=== PATIENT | male | born 1965 ===

== ENCOUNTER 2018-05-16 09:12 | Emergency (ER) | payer OTHER ==
[~2018-05-16] VITALS: Ht 180.3 cm; Wt 137.0 kg
[~2018-05-16 09:12] MED LIST: CIPRO500 MG PO; FLAGYL500MG PO; NABUMETONE500 MG PO; PERCOCET 5/3251 TAB PO; ULTRACET PO
[2018-05-16] MEDS ORDERED: FORTAMET500 MG PO (09:23)
[2018-05-16] MEDS ORDERED: TOPROL XL100 M1 (09:24)
[2018-05-16] MEDS ORDERED: ZESTRIL40 M1 PO (09:25)
== END 2018-05-16 13:27 | disposition home or self-care (01) ==
LOC: ER 09:12
DX: R10.31 Right lower quadrant pain (principal)